=== PATIENT | male | born 1965 | race Caucasian/White ===

== ENCOUNTER → 2017-06-04 | Outpatient (CLI) | payer OTHER ==
[~2017-06-04] MED LIST: ASPIRIN 325MG325 MG PO; HUMALOG PEN100 U/ML SC; INSULIN GL100 UNITS1 SC; KLOR-CON M2020 MEQ PO; LANTUS INS100 UNITS/ SC; LISINOPRIL2.5 MG PO; METOPROLOL25 MG PO; PANTOPRAZOLE SO40 MG PO; PRAVASTATIN 40M40 MG PO
[2017-06-04 09:07] LABS: BUN 15 mg/dL (7-18)
[2017-06-04 09:20] LABS: GFR (ESTIMATED) 79 ML/MIN (>60)
[2017-06-05 08:40] LABS: Creatinine, Urine 152.1 mg/dL (Not Estab.); Microalbumin, Urine <3.0 ug/mL (Not Estab.)
== END ==
LOC: LAB 07:14
PROVIDERS: Nurse Practitioner
DX: E10.9 Type 1 diabetes mellitus without complications (principal); E78.2 Mixed hyperlipidemia; I10 Essential (primary) hypertension